=== PATIENT | female | born 1995 | race Caucasian/White ===

== ENCOUNTER 2025-07-26 08:57 | Emergency (ER) | payer OTHER ==
[~2025-07-26] VITALS: Ht 177.8 cm; Wt 65.1 kg
[2025-07-26 09:24] VITALS: RESP 18; TEMP 97.4
[2025-07-26 10:04] LABS: LEUKOCYTE ESTERASE ,URINE NEGATIVE (Neg); NITRITES, URINE NEGATIVE (Neg); OCCULT BLOOD,URINE NEGATIVE (Neg)
[2025-07-26 10:06] LABS: UA COLLECTION TYPE CLN CATCH MIDSTREAM; URINE HCG NEGATIVE (NEG)
--- NOTE | 2025-07-26 10:16 | Physician Documentation ---
History of Present Illness ~ Chief Complaint: Urinary Symptoms Stated Complaint: UTI SYMPTOMS Time Seen by MD: 10:11 HPI 30-year-old female presents to the ED with a complaint of urinary symptoms including urinary frequency burning urination. Denies any discharge reports th at the urine has a foul odor. Denies any other associated symptoms denies any vaginal lesions.. Denies any fevers. Medication Reconciliation Allergies: Coded Allergies: Sulfa (Sulfonamide Antibiotics) (Verified Allergy, Unknown, 07/26/25) Scheduled Nitrofurantoin Macrocrystal (Nitrofurantoin), 1 CAP PO Q12H Discontinued Medications Fluconazole* (Diflucan*), 1 TAB PO ONCE Discontinued Reason: Auto Discontinued Review of Systems All Other Systems at this time: Reviewed and Negative ROS As stated above in the HPI, otherwise all systems are reviewed and negative. Physical Exam Vital Signs: Temperature: 97.4, Source: Temporal, Heart Rate: 102, Respiratory Rate: 18, BP: 100/73, Pulse Oximetry: 100, Weight: 65.100 Oxygen Flow Rate: 0 Physical Exam General: Alert, no apparent distress. HEENT: PERRL, EOMI, no injection, moist mucous membranes. Neck: Full range of motion. Respiratory: Lungs clear, no respiratory distress. Chest: No accessory muscle use. Cardiovascular: Regular rate and rhythm, no murmurs. Gastrointestinal: Soft, nontender, nondistended. Bowels sounds present. Extremities: Normal range of motion, no deformity. Neurologic: Oriented x4. Psychiatric: Normal mood and affect. Skin: Normal color, warm and dry. No edema, no ecchymosis. Progress Results/Orders Results/Orders Completed Orders - JENNI NELSON MD Hcg, Ur Ql (07/26/25 09:33) Ua W/Microscopic, Cult If Ind (07/26/25 09:42) Cult Urine + [address] (07/26/25 10:20) Vital Signs 07/26/25 07/26/25 07/26/25 07/26/25 09:24 10:24 10:37 10:41 Temp 97.4 Pulse 102 82 84 Resp 18 B/P (MAP) 100/73 108/74 (85) 107/74 Pulse Ox 100 98 99 O2 Flow Rate 0 Laboratory Tests Test 07/26/25 09:42 Urine Specimen Description Cln catch midstream Urine Color Yellow Urine Clarity Clear Urine pH 6.0 Urine Specific [place] 1.015 Urine Protein Negative Urine Glucose (UA) >=1000 H Urine Ketones Negative Urine Occult Blood Negative Urine Nitrite Negative Urine Bilirubin Negative Urine Urobilinogen 0.2 Urine Leukocyte Esterase Negative Urine RBC 0-2 Urine WBC 10-20 H Urine WBC Clumps Few Urine Squamous Epithelial Cells Few Urine Bacteria Few Urine Culture Indicated Indicated Volume Urine Centrifuged 10 ml Urine HCG, Qualitative Negative Urine Comment Microbiology Date/Time Source Procedure Growth Status 07/26/25 10:20 Urine Clean Catch Midstream Urine Culture - Final MIXED ANDREAS ISOLATED.... Complete Medical Decision Making Additional information obtaine: old records Findings Treating patient empirically for suspected UTI. Advised her that diabetes and elevated glucose in her urine makes her more prone to UTIs. Advise her to follow up for any worsening symptoms based on her history of yeast infections I am also going to prescribe single dose of fluconazole Urinary Diff Dx:Considerations: Include: AAA, , Aortic dissection, Appendicitis, Bowel obstruction, Cholelithiasis, Choleangitis, DJD, Ectopic , Hepatitis, HNP, Impaction, Intrauterine , Musculoskeletal pain, Ovarian torsion, Pancreatitis, PID, Post-Op complication, Pyelonephritis, Renal failure, Strain, Urinary Obstruction, Urolithiasis, Urinary retention, UTI, Vaginitis, Other Genital Diff Dx:Considerations: Unlikely: -Complete, - Incomplete, -Inevitable, Ablortion-Missed, -Threatened, Abruptio placentae, Bartholin abscess, Bartholin cyst, Blood loss anemia, Constipation, Cervicitis, Dsymenorrhea, Ectopic , Foreign body, Hormonal, Hidradenitis suppurativa, Intrauterine , Menorrhagia, Menometrorrhagia, Menstrual bleeding, Myomatous uterus, Perianal abscess, Physiologic discharge, Pinworms, PID, Placenta previa, , Precipitous Hct, Trauma, UTI, Vagini tis(osis)-Atrophic, Vaginitis, Vaginitis(osis)-Bacterial, Vaginitis(osis)- Candidal, Vaginitis(osis)-Contact, Vaginitis(osis)-Herpes, Vaginitis(osis)- Trich., Other Departure Disposition: HOME / SELF CARE / HOMELESS Impression: Primary Impression: Acute urinary tract infection Condition: Stable Discharge Instructions: Urinary Tract Infection, Adult Referrals: NO PRIMARY CARE PROVIDER (PCP) Prescriptions Nitrofurantoin Macrocrystal (Nitrofurantoin) 100 Mg Capsule 1 CAP PO Q12H for 7 Days, #14 CAP 0 Refills Prov: BIMAL CERON NP 07/26/25 Education Educated: Patient Signature Scribe Signature: u Attestation: Scribed for Bimal Ceron Ammonia Box Operator by Bimal Mack NP . 07/26/25 10:15 BIMAL CERON NP Jul 26, 2025 10:16 JENNI NELSON MD Jul 26, 2025 17:45
[2025-07-26 10:20] LABS: SQUAMOUS EPITHELIAL CELL,UR FEW /LPF (FEW); WBC CLUMPS,URINE FEW /HPF (NEGATIVE)
[2025-07-26] MEDS ORDERED: NITR100C PO (10:30)
[2025-07-26] MEDS ORDERED: DIF150T PO (10:31)
[2025-07-26 10:41] VITALS: BP 107/74; PULSE 84; O2SAT 99
== END 2025-07-26 10:43 | disposition home or self-care (01) ==
LOC: ER 09:00
DX: N39.0 Urinary tract infection, site not specified (principal); Z88.2 Allergy status to sulfonamides
CPT/HCPCS: 81001; 81025; 87088; 99283